=== PATIENT | female | born 2000 | race Caucasian/White ===

== ENCOUNTER 2022-07-16 23:20 | Inpatient (IN) | payer MEDICAID, SELFPAY ==
[2022-07-17] VITALS (25 sets, daily range): BP systolic 113–172; BP diastolic 55–105; PULSE 58–92; RESP 8–28; TEMP 36.3–36.7; O2SAT 91–99; BMI 41.5
--- NOTE | 2022-07-17 01:42 | PC.NURSE ---
Upon patient's body audit, she had a superficial laceration to left forearm, right 5th toe is cut on the tip, she has multiple partida of various staging of healing on bilateral arms, legs, multiple piercings (self pierced) & multiple self made tattoos.
[2022-07-17] MEDS: nicotine 4 mg lozenge MUCOUS MEM ×4 (02:18→21:47)
[2022-07-17] MEDS: doxepin 10 mg Capsule PO ×2 (02:18→21:47)
[2022-07-17] MEDS: levETIRAcetam 500 mg Tablet 1000 MG PO ×2 (02:18→09:09)
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
[2022-07-17] MEDS: pantoprazole DR 40 mg Tablet PO (09:09)
[2022-07-17] MEDS: escitalopram 10 mg Tablet 20 MG PO (09:10)
--- NOTE | 2022-07-17 10:51 | PC.NURSE ---
patient was sitting on patio visiting with staff and other patients. Told staff she felt dizzy and thought she was going to have a seizure. Patient walked back inside and made it to the hallway and she said down then slowly assisted to the floor. Patient had tonic clonic seizure lasting approx 45 secs. Opened her eyes and had another episode lasting about 10 sec. Patient laid on the floor and then became responsive and alert. Patient was assisted to her room, VSS, patient also complained of a headache and after episode, patient was pain free
[2022-07-17 12:17] LABS: Glucose Point of Care 87 mg/dL (70-110)
[2022-07-17] MEDS: LORazepam 2 mg/mL INJ 1 mL 1 MG IM ×2 (12:24→13:40)
--- NOTE | 2022-07-17 12:29 | PC.NURSE ---
Dr. Marinelli gave verbal orders to administer 1mg IM Ativan in left buttock. pt tolerated well
--- NOTE | 2022-07-17 12:40 | PC.NURSE ---
Rapid response called after patient had 6-7 episodes of seizure type activity. Patient received Ativan 2mg IM LG. Patient was assisted to her bed. Patient walked to BR and vomited and was slightly incontinent of urine. Patient continues to C/O headache, tylenol given. Patient up and about, states she is tired but unable to sleep.
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
[2022-07-17] MEDS: acetaminophen 325 mg Tablet 650 MG PO (13:06)
[2022-07-17 14:05] LABS: Basophils % 0.4 %; Eosinophils % 0.4 %; Hematocrit 41.1 % (37.0-47.0); Hemoglobin 13.3 g/dL (11.5-15.3); Lymphocytes # 2.2 10^3/uL (0.8-4.8); Lymphocytes % 21.4 %; Mean Corpuscular HGB Conc 32.4 g/dL (30.0-36.0); Mean Corpuscular Hemoglobin 27.6 pg (28.0-34.0); Mean Corpuscular Volume 85.3 fl (81-99); Mean Platelet Volume 10.7 fL (7.4-10.4); Monocytes # 0.5 10^3/uL (0.2-0.9); Neutrophils # 7.57 10^3/uL (1.8-7.7); Neutrophils % 72.4 %; Nucleated Red Blood Cells % 0 %; Platelet Count 266 10^3/cmm (130-400); Red Blood Count 4.82 10^6/uL (4.1-5.3); Red Cell Distribution Width 12.3 % (12.1-15.1); White Blood Count 10.4 10^3/uL (4.0-10.0)
[2022-07-17 14:11] LABS: Alanine Aminotransferase 24 U/L (0-33); Albumin Level 4.5 g/dL (3.5-5.2); Alkaline Phosphatase 96 U/L (35-105); Anion Gap 14.9 (5-19); Aspartate Amino Transferase 27 U/L (0-32); Blood Urea Nitrogen 13 mg/dL (6-20); Calcium 9.7 mg/dL (8.5-10.5); Carbon Dioxide 26 mmol/L (22-29); Chloride 96 mmol/L (98-107); Globulin 3.1 g/dL (1.3-4.6); Glomerular Filtration Rate 69.3 mL/min (90-130); Glucose 92 mg/dL (65-115); Magnesium 2.3 mg/dL (1.7-2.3); Osmolality Calculated 276 mOsm/kg (285-295); Phosphorus 3.8 mg/dL (2.5-4.5); Potassium 3.9 mmol/L (3.5-5.1); Sodium 133 mmol/L (136-145); Total Bilirubin 0.3 mg/dL (0.15-1.2); Total Protein 7.6 g/dL (6.6-8.7)
--- NOTE | 2022-07-17 14:32 | XRR_ITS ---
PROCEDURE INFORMATION: Exam: XR Chest Exam date and time: 07/17/2022 1:46 PM Age: 22 years old Clinical indication: Seizure TECHNIQUE: Imaging protocol: Radiologic exam of the chest. Views: 1 view. COMPARISON: No relevant prior studies available. FINDINGS: Lungs: No consolidation. Pleural spaces: Unremarkable. No pleural effusion. No pneumothorax. Heart/Mediastinum: No cardiomegaly. Bones/joints: No acute findings. XR/XR chest 1V portable [id number] IMPRESSION: No acute findings.
--- NOTE | 2022-07-17 14:51 | PC.NURSE ---
Report called to Eulalia WORRELL, patient to be transferred to [facility] room 262-1
[2022-07-17 15:17] LABS: Prolactin 28.98 ng/mL (4.8-23.3); Thyroid Stimulating Hormone 0.53 uIU/mL (0.27-4.20)
[2022-07-17 15:23] LABS: Estmated Average Glucose 97
[2022-07-17 15:28] LABS: Chol HDL Ratio 3.94 mg/dL (0.0-4.40); Cholesterol 142 mg/dL (0-200); HDL Cholesterol 36 mg/dL (60-100); LDL Cholesterol Calculated 59 mg/dL (50-129); LDL HDL Ratio 1.64 RATIO (0.00-3.22); Triglycerides 237 mg/dL (0-150)
[2022-07-17] MEDS: LORazepam 2 mg/mL INJ 1 mL IVP ×2 (16:10→16:30)
[2022-07-17] MEDS: sodium chloride 0.9% 1,000 ML 125 ML IV ×2 (16:21→17:24)
[2022-07-17 17:00] LABS: Alcohol Level < 10 mg/dL (0-10)
--- NOTE | 2022-07-17 17:56 | PM.CCNAC ---
Critical Care Event Note The high probability of a clinically significant, sudden or life threatening deterioration of the patient's [] system(s) required my full and direct attention, intervention and personal management. The critical care time is as shown. This time is in addition to time spent performing any reported procedures but includes the following: [x] Data and vital sign review and interpretation [x] Patient assessment, examination and intervention [x] Documentation [x] Medication orders and management Critical Care Time Code activated: No Critical Care Time (min): 30 Additional information about critical care time: - Patient was seen multiple times throughout the afternoon, [facility] she was having active seizure episodes, laying on her side, she received 2 mg of IV Ativan, her seizure abated, I was told by nursing staff again that she had recurrent breakthrough seizures -She was given another 2 mg of IV Ativan, loaded with Keppra receiving IV fluids, her seizure stopped she is postictal, she sat up in bed, normotensive, on room air, heart rate in the 70s, -I had nursing staff move her down to the ICU for close monitoring -She was again seen in the ICU, she is laying on her side, she is sleeping, no recurrent seizure-like episodes, Coding Level of Care Code Acute Code for Chg Fwd
--- NOTE | 2022-07-17 18:02 | PC.NURSE ---
Patient arrived on floor at 1530. This nurse met with patient and was awaiting sitter. The ADVERTISING DESIGNER from NPU and this nurse heard patient say, I feel dizzy . ADVERTISING DESIGNER from NPU stated, this is what happens before . ADVERTISING DESIGNER then left, and within 30 seconds patient started to seize. This nurse requested help from Nurse Allen/Serene BAEZ. Serene helped this nurse keep patient on her side and pad rails. This nurse and Serene contacted the charge nurse, Cassandra, for assistance. After Cassandra arrived we contacted Dr. Duong because seizures continued. Patient was moved to ICU at approximately 1640. This nurse was unable to put in/chart interventions.
[2022-07-17 21:09] LABS: HCG Qualitative Urine. Negative (Negative)
--- NOTE | 2022-07-17 22:10 | PC.NURSE ---
Patient has exhibited periods of confusion and upon awakening pulls off leads and attempts to pull IV lines. Patient has been redirected and is slow to orientation. Patient also exhibits clear concise conversation with 1:1 sitter but displays confusion and sluggish speech with nurse. Patient was provided a sandwich, drink, pudding, and cake of which she ate 75%. Patient was able to ambulate to toilet and urinate. She reported that she has night terrors and has awaken to ask for a nurse from a previous facility. Leads are currently off as patient has been erratic in nature when pulling things including breaking patient ID band and allergy band. New bands have been provided and patient apologized for breaking off previous ones. Patient did report not taking Keppra for a few days prior to her hospitalization. Instruction was given on the importance of taking this medication on a regular basis to maintain therapeutic levels.
[2022-07-17 22:53] LABS: Add Urine Microscopic? YES; Bilirubin Urine Neg (Negative); Blood Urine 3+ (Negative); Glucose Urine UA Norm (Normal); Ketones Urine Negative (Negative); Leukocyte Esterase Urine Negative (Negative); Nitrate Urine Negative (Negative); Protein Urine Neg (Negative); Urine Appearance Clear (CLEAR); Urine Color Yellow (Yellow); Urobilinogen Urine Norm (Negative); pH Urine 7 (5-7)
[2022-07-17 22:55] LABS: RBC Urine 0-4 /hpf (0-2)
[2022-07-17 22:56] LABS: Bacteria Urine 1+ /hpf
[2022-07-17 23:01] LABS: Amphetamines Screen Urine Negative (Negative); Barbiturates Screen Urine Negative (Negative); Benzodiazepines Screen Urine Positive (Negative); Cocaine Screen Urine Negative (Negative); Opiate Screen Urine Negative (Negative); PCP Screen Urine Negative (Negative); THC Screen Urine Positive (Negative)
[2022-07-18] VITALS (28 sets, daily range): BP systolic 121–152; BP diastolic 61–96; PULSE 0–100; RESP 18–75; TEMP 36.7–36.8; O2SAT 79–98
[2022-07-18] MEDS: hyDROXYzine 25 mg Capsule 50 MG PO ×2 (00:56→09:47)
[2022-07-18] MEDS: ondansetron 4 MG Tablet PO (01:22)
--- NOTE | 2022-07-18 02:37 | PC.NURSE ---
Patient presented as having multiple seizures within an hour period. Patient had asked for medication to help sleep, specifically IV meds. PO vistaril was administered and first seizure began approximately 5 minutes later. During each seizure the patient's heart rate only slightly elevated, Sp02 remained in the upper 90s, eyes were not fixed and briskly dilated. In each postictal period the patient was aroused within a couple minutes and was able to answer questions. After one episode the patient sat up on the side of the bed and after speaking to the sitter rolled forward onto the floor. The patient was assessed on the floor and appeared unresponsive although eyes were still reactive to a light and avoided objects. Patient was sat up and able to stand to get back into bed. Hospitalist notified of event and prolactin lab ordered. This nurse went into patient's room and had a discussion with patient about their desires for this hospital stay. After good discussion with patient about their current situation and history of seizures and pseudo-seizures, we determined that it was best to avoid use of Ativan to allow patient to return to NPU sooner. Patient acknowledged that not all seizures have been real and we would move forward with a clean slate. This nurse expressed to patient that the best care would result from honesty. Patient was very cooperative and shared details of events leading up to this hospital stay. Patient expressed that they were willing to speak about these events with physicians. Patient has rested more comfortably since this discussion and no more seizure events have been observed.
[2022-07-18 02:50] LABS: Basophils % 0.5 %; Eosinophils # 0.1 10^3/uL (0.0-0.8); Hematocrit 38.6 % (37.0-47.0); Hemoglobin 12.4 g/dL (11.5-15.3); Lymphocytes # 2.4 10^3/uL (0.8-4.8); Mean Corpuscular HGB Conc 32.1 g/dL (30.0-36.0); Mean Corpuscular Hemoglobin 27.5 pg (28.0-34.0); Mean Corpuscular Volume 85.6 fl (81-99); Mean Platelet Volume 10.5 fL (7.4-10.4); Monocytes # 0.6 10^3/uL (0.2-0.9); Monocytes % 8.3 %; Neutrophils % 57.8 %; Nucleated Red Blood Cells % 0 %; Platelet Count 219 10^3/cmm (130-400); Red Blood Count 4.51 10^6/uL (4.1-5.3); Red Cell Distribution Width 12.3 % (12.1-15.1); White Blood Count 7.6 10^3/uL (4.0-10.0)
[2022-07-18 03:08] LABS: Anion Gap 14.8 (5-19); Blood Urea Nitrogen 11 mg/dL (6-20); Calcium 9.1 mg/dL (8.5-10.5); Carbon Dioxide 24 mmol/L (22-29); Chloride 104 mmol/L (98-107); Glomerular Filtration Rate 89.7 mL/min (90-130); Glucose 88 mg/dL (65-115); Magnesium 2.1 mg/dL (1.7-2.3); Osmolality Calculated 287 mOsm/kg (285-295); Phosphorus 3.6 mg/dL (2.5-4.5); Potassium 3.8 mmol/L (3.5-5.1); Sodium 139 mmol/L (136-145)
[2022-07-18] MEDS: escitalopram 10 mg Tablet 20 MG PO (08:34)
[2022-07-18] MEDS: sodium chloride 0.9% 1,000 ML 125 ML IV (08:34)
[2022-07-18] MEDS: pantoprazole DR 40 mg Tablet PO (08:34)
--- NOTE | 2022-07-18 09:04 | PC.OT ---
OT Eval Held - Psych OT evaluation held at this time secondary to patient being placed in ICU for medical management.
[2022-07-18] MEDS: acetaminophen 325 mg Tablet 650 MG PO (09:17)
--- NOTE | 2022-07-18 09:32 | PC.NURSE ---
Patient anxious, keeps requesting to talk to a doctor, Dr. Duong seen patient this morning, awaiting NPU doctor to see patient.
--- NOTE | 2022-07-18 10:15 | PC.SOCIAL ---
Transfer Per rounds patient to transfer back to NPU today
--- NOTE | 2022-07-18 12:03 | PC.NURSE ---
All IVs removed, patient transferring back to NPU today going to room 151-1
--- NOTE | 2022-07-18 12:32 | PM.PN ---
Subjective Subjective: Patient was seen this morning, according to nurses throughout the night she had seizure-like episodes, but nurses felt that it was more like conversion disorder, she was not given any Ativan nurses were able to talk to her out of it, and she came out of her seizure episodes, patient was seen this morning, she wants to go back to the neuropsychiatric unit, denies any headache, blurry vision, no nausea, vomiting Vitals/I&O/Wt Last Vital Signs Temp 98.1 F 07/18/22 12:24 Pulse 75 07/18/22 12:24 Resp 75 H 07/18/22 12:24 BP 131/68 07/18/22 12:24 Pulse Ox 97 07/18/22 12:24 O2 Del Method 07/18/22 12:24 07/17/22 07/18/22 07/18/22 22:59 06:59 14:59 Intake Total 591.25 / 591.25 1779.167 / 1779.167 Output Total 1200 / 1200 Balance -608.75 / -608.75 1779.167 / 1779.167 Weight last 48 hrs Weight 120.202 kg Weight 120.202 kg Weight 120.202 kg Physical Exam Const: COMMON NORMALS: no acute distress and patient oriented x3 Resp: COMMON NORMALS: normal respiratory effort, No retractions, No use of accessory muscles and clear to auscultation bilaterally AUSCULTATION: clear to auscultation bilaterally Cardio: COMMON NORMALS: regular rate, regular rhythm, S1 normal heart sound present and S2 normal heart sound present RATE: regular rate RHYTHM: regular rhythm HEART SOUNDS: S1 normal heart sound present and S2 normal heart sound present GI: COMMON NORMALS: Normal to inspection, nondistended, normoactive bowel sounds present and non-tender Extremity: COMMON NORMALS: no pedal edema Neuro: COMMON NORMALS: patient oriented x3 Psych: COMMON NORMALS: mental status grossly normal Data 07/18/22 02:34 07/18/22 02:34 Micro: Microbiology 07/17/22 10:13 C.difficile Toxin B Gene (PCR) - Final Stool - Stool Aspirate A&P Assessment and plan (1) Breakthrough seizure: Plan Breakthrough seizures -No recurrent seizures this morning -Continue Keppra thousand twice daily \-Will follow along -SCDs for DVT prophylaxis Attestations Medical Necessity Statement*: Patient will be moved back to neuropsychiatric unit Diagnoses Breakthrough seizure G40.919
[2022-07-18] MEDS: nicotine 4 mg lozenge MUCOUS MEM (13:16)
[2022-07-18 13:39] LABS: Glucose Point of Care 111 mg/dL (70-110)
[2022-07-18] MEDS: OLANZapine 5 mg ODT PO (15:42)
--- NOTE | 2022-07-18 15:46 | PC.NURSE ---
Patient is acting agitated and is stating that she needs something for anxiety. Administered Zyprexa 5mg PO to patient and encouraged patient to go to her room and take some deep breaths.
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
--- NOTE | 2022-07-18 16:59 | P.NPUPN_ITS ---
Subjective NPU Subjective: Patient is a 22-year-old white female with a history of bipolar disorder and a recent onset of seizure disorder who was admitted back to the Neuropsych Unit from the medical unit after being stabilized for a breakthrough seizure on 07/16/2022. The patient had reported a history of substance abuse and stated that she had been attempting to take her Keppra routinely. She had reported that she had felt that her mood had been more stable on Vraylar but states that she had ran out of her medication for about 3 weeks. She had reported a history of frequent mood swings along with a history of anxiety. She had reported a past history of self-injurious behavior. She had reported that her thoughts were not strong to hurt herself although she had acknowledged having been suicidal in the past. She had reported a history of having overdosed on her Keppra and melatonin in the past. She had reported not currently having thoughts of cutting herself. She had reported an extended history of feelings of abandonment along with difficulties with managing isolation. Mental Status Exam MSE Comments: This is an obese white female in hospital scrubs with limited grooming and eye contact. Head is essentially shaved with some growth on the top. She has multiples scratches, scars, cuts, pierceings and tattoos noticable. No abnormal movements except for psychomotor retardation. Cooperative with exam in mild distress. Speech was normal in regards to rate rhythm and volume today.. Mood described as okay., Her affect is flat and mood incongruent. Thought process, organized. Thought content: patient denies current suicidal or homicidal ideations, no delusions noted or reported and denies any auditory or visual hallucinations. Attention and concentration are intact and memory appeared reliable but none were formally tested. She is alert and oriented times three. Insight and judgment are poor. Impulse control is impaired. Vitals/I&O/Wt Last Vital Signs Temp 98.3 F 07/18/22 14:10 Pulse 73 07/18/22 14:10 Resp 18 07/18/22 14:10 BP 125/76 07/18/22 14:10 Pulse Ox 97 07/18/22 14:10 O2 Del Method 07/18/22 13:31 07/18/22 07/18/22 07/18/22 06:59 14:59 22:59 Intake Total 1779.167 / 1779.167 Balance 1779.167 / 1779.167 Weight last 48 hrs Weight 120.202 kg Weight 120.202 kg Weight 120.202 kg Data NPU 07/18/22 02:34 07/18/22 02:34 Micro: Microbiology 07/17/22 10:13 C.difficile Toxin B Gene (PCR) - Final Stool - Stool Aspirate Microbiology 07/17/22 10:13 Stool - Stool Aspirate C.difficile Toxin B Gene (PCR) - Final A&P Assessment and plan (1) Seizure: (2) Borderline personality disorder in adult: (3) Bipolar 1 disorder: Plan This is a 22 year old white woman with a history of significant trauma in addition to recent trauma, history of PTSD and genetic loading for mental health and addiction issues who presents after a recent flashback episode and reported a history of hypomanic symptoms along with periods of intense mood fluctuations and mood lability. 1. Start Vraylar 3mg daily, continue Lexapro 20mg in am. Attempt to gather collateral information and previous records. 2. Encourage individual, group and milieu therapy 3. Continue q-15 minute check for safety 4. Recommend sober living treatment at the highest level of care to which the patient is willing to commit. Involuntary Hold Information 96 Hour Hold: 96 Hour Involuntary Admission: Yes 96 Hour Hold Ending Date: 07/21/22 96 Hour Hold Ending Time: 00:01 Attestations NPU Medical Necessity Statement*: Inpatient hospitalization is medically necessary and the clinically appropriate intervention at this time. We will monitor medications and make changes as indicated. Patient will be in the hospital for over two midnights. Likely length of stay is three to five days. Coding Level of Care Code Acute Code for [facility] Fwd Diagnoses Seizure R56.9 Borderline personality disorder in adult F60.3 Bipolar 1 disorder F31.9
[2022-07-18] MEDS: nicotine 2 mg Gum BUCCAL (17:18)
[2022-07-18] MEDS: VRAYLAR 3 MG 3 EACH PO (18:32)
[2022-07-19] MEDS: doxepin 10 mg Capsule PO ×2 (01:03→20:03)
[2022-07-19] MEDS: levETIRAcetam 500 mg Tablet 1000 MG PO ×3 (01:03→20:03)
[2022-07-19] MEDS: hyDROXYzine 25 mg Capsule 50 MG PO ×2 (01:25→15:32)
[2022-07-19] MEDS: trazodone 50 mg Tablet PO (01:26)
[2022-07-19] MEDS: escitalopram 10 mg Tablet 20 MG PO (08:00)
[2022-07-19] MEDS: pantoprazole DR 40 mg Tablet PO (08:01)
[2022-07-19] MEDS: VRAYLAR 3 MG 3 EACH PO (08:02)
[2022-07-19] MEDS: nicotine 4 mg lozenge MUCOUS MEM ×5 (08:41→18:16)
[2022-07-19 12:08] VITALS: BP 133/82; PULSE 75; RESP 17; TEMP 37; O2SAT 98
--- NOTE | 2022-07-19 15:34 | PC.NURSE ---
Patient approached this nurse, wringing her hands while stating that she was feeling very anxious. This nurse asked patient what was bothering her. Patient stated that she was anxious because of the visitors at the unit. Patient encouraged to return to her room and try to rest until the guests left at 4pm. Patient's eyes started to open and shut quickly like she was going to fall. This nurse left the nurses station to help steady the patient. With the help of a FABRICATION MIG WELDER, this nurse escorted the patient to her bed. After patient appeared to calm down, this nurse administered 50mg Vistaril to patient. No adverse reactions.
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
--- NOTE | 2022-07-19 18:45 | PC.NURSE ---
discharge med called into [facility] pharmacy in [place], [place] @ [phone] Vraylar 3 mg po daily, qty 30 refill x1, per Dr. Jewell spoke to Kobe
[2022-07-19 18:48] VITALS: BP 133/82; PULSE 75; RESP 17; TEMP 37; O2SAT 98
--- NOTE | 2022-07-19 19:03 | PC.NURSE ---
Discharge information reviewed with patient, including appointments, medications, and education about her disorders. All questions answered. Patient stated that she was ready to leave. Patient denies SI and HI. Patient is awaiting ride.
[2022-07-19 19:56] VITALS: BP 146/95; PULSE 118; RESP 20; TEMP 36.7; O2SAT 95
--- NOTE | 2022-07-19 20:39 | PC.NURSE ---
PT ASSISTED TO CHANGE OUT OF HOSPITAL ATTIRE INTO [facility] [facility]. PT ESCORTED TO WAITING PRIVATE VEHICLE AT THIS TIME. PT VOICED NO COMPLAINTS OF PAIN OR ACUTE DISTRESS. PT AMBULATORY.
== END 2022-07-19 20:30 | disposition home or self-care (01) | DRG 885 ==
LOC: NP 07-17 04:48 → MEDSURG 07-17 14:46 → ICU 07-17 16:51 → NP 07-18 12:12
PROVIDERS: Family Medicine; Internal Medicine; Admitting Provider Psychiatry & Neurology Psychiatry; Visit Provider Psychiatry & Neurology Psychiatry
DX: F31.9 Bipolar disorder, unspecified (principal); R45.851 Suicidal ideations; Z68.41 Body mass index [BMI] 40.0-44.9, adult; T42.6X6A Underdosing of other antiepileptic and sedative-hypnotic drugs, initial encounter; Z91.128 Patient's intentional underdosing of medication regimen for other reason; T50.996A Underdosing of other drugs, medicaments and biological substances, initial encounter; F43.10 Post-traumatic stress disorder, unspecified; E66.9 Obesity, unspecified; F17.290 Nicotine dependence, other tobacco product, uncomplicated; F12.90 Cannabis use, unspecified, uncomplicated; R56.9 Unspecified convulsions; F60.3 Borderline personality disorder; F41.9 Anxiety disorder, unspecified
CPT/HCPCS: 36415; 36416; 71045; 80048; 80053; 80061; 80306; 80307; 81001; 81025; 82962; 83036; 83735; 84100; 84146; 84443; 84702; 85025; 87493; 96372; 96376; 97150; 97165; J1953; J2060; J7030; Q0162